=== PATIENT | female | born 1970 | race African-American/Black ===

== ENCOUNTER 2017-08-31 10:59 | Day surgery (SDC) | payer OTHER ==
[2017-08-29 17:03] LABS: BASOPHIL % 0.5 % (0-2); PLATELET COUNT 205 x10^3mcL (130-400); RED CELL DISTRIBUTION WIDTH 14.5 % (11.5-14.5)
[2017-08-29 17:15] LABS: CARBON DIOXIDE 27.5 mmol/L (21-32); CHLORIDE SERUM 102 mmol/L (98-107); CREATININE SERUM 0.8 mg/dL (0.6-1.0); GFR1 > 60 mL/min; GLUCOSE SERUM 91 mg/dL (74-106); SODIUM SERUM 136 mmol/L (136-145)
[~2017-08-31] VITALS: Ht 175.3 cm; Wt 75.7 kg
[2017-08-31 11:41] VITALS: BP 137/70
[2017-08-31 19:30] VITALS: BP 120/74
== END 2017-08-31 17:40 | disposition home or self-care (01) ==
LOC: DS 10:59 → OR 15:30 → DS 17:40
PROVIDERS: Obstetrics & Gynecology
PROC: 0UDB8ZZ Extraction of Endometrium, Via Natural or Artificial Opening Endoscopic (ICD-10-PCS; 2017-08-31)
PROC: 0U5B8ZZ Destruction of Endometrium, Via Natural or Artificial Opening Endoscopic (ICD-10-PCS; principal; 2017-08-31 16:30)
DX: N92.1 Excessive and frequent menstruation with irregular cycle (principal); D25.9 Leiomyoma of uterus, unspecified
CPT/HCPCS: J0690; J2250; J2270; J2405; J2704; J3010; J7120

== ENCOUNTER → 2017-10-04 | Outpatient (CLI) | payer OTHER | END | disposition home or self-care (01) | LOC: MI 14:00 | PROC: BP38YZZ Magnetic Resonance Imaging (MRI) of Right Shoulder using Other Contrast (ICD-10-PCS; principal; 2017-10-04) | DX: M24.411 Recurrent dislocation, right shoulder (principal) | CPT/HCPCS: A9577 ==